=== PATIENT | female | born 1995 | race Caucasian/White ===

== ENCOUNTER 2017-07-17 17:50 | Emergency (ER) | payer MEDICAID ==
[~2017-07-17] VITALS: Ht 165.1 cm; Wt 72.6 kg
[2017-07-17 18:33] VITALS: Ht 165.1 cm; Wt 72.6 kg
[2017-07-17 21:02] LABS: BASOPHIL % 0.9 % (0-2); PLATELET COUNT 232 x10^3mcL (130-400); RED CELL DISTRIBUTION WIDTH 13.2 % (11.5-14.5)
[2017-07-17 21:10] LABS: UA SPECIFIC GRAVITY 1.025 (1.005-1.035); microscopic required? YES; urine erythrocyte NEGATIVE (NEGATIVE)
[2017-07-17 22:45] VITALS: BP 115/65
== END 2017-07-17 22:45 | disposition home or self-care (01) ==
LOC: ED 17:50
PROVIDERS: Emergency Medicine Emergency Medical Services
DX: O26.892 Other specified pregnancy related conditions, second trimester (principal); Z3A.18 18 weeks gestation of pregnancy; J45.909 Unspecified asthma, uncomplicated
CPT/HCPCS: 36415